=== PATIENT | female | born 1960 | race Caucasian/White ===

== ENCOUNTER → 2023-08-25 07:34 | Outpatient (REF) | payer BC, SELFPAY | LOC: HWRAD 07:34 | PROVIDERS: ATTENDING PHYSICIAN Family Medicine | DX: I49.9 Cardiac arrhythmia, unspecified (principal); R53.83 Other fatigue; R11.0 Nausea; M54.9 Dorsalgia, unspecified | CPT/HCPCS: 76700 ==

== ENCOUNTER → 2024-10-05 09:26 | Outpatient (REF) | payer BC, SELFPAY | LOC: HWCARD 09:26 | PROVIDERS: ATTENDING PHYSICIAN Orthopaedic Surgery; FAMILY PHYSICIAN Family Medicine | DX: Z01.818 Encounter for other preprocedural examination (principal) | CPT/HCPCS: 93005 ==

== ENCOUNTER 2025-03-25 09:00 | Emergency (ER) | payer BC, SELFPAY ==
[2025-03-25 09:03] VITALS: BP 149/84
--- NOTE | 2025-03-25 09:40 | ED.GENMED ---
History of Present Illness
General
Chief Complaint: Headache
Time Seen by Provider: 03/25/25 09:30
History of Present Illness
History of Present Illness:
65-year-old female presents to the emergency department for evaluation of intermittent sharp pains to the right occiput and right temporal skull for 5 days. No obvious provoking or palliating factors but patient does note that whenever she leans
forward the pain worsens. She does note some neck discomfort for the past several months as well. No vision changes, diplopia, nausea, vomiting, fever, chills, or sweats. Saw her primary care physician on Wednesday and was given an order for a CT
scan of the brain which has not yet been scheduled.
Past History
Past History
ED Past Medical History: None
ED Past Surgical History: None
Social History
Tobacco: Non-smoker
Living: with family
Employment: Employed
Review of Systems
Review of Systems
Allergies reviewed?: Yes
All Other Systems: ROS reviewed and negative except as documented in HPI and ROS
Phy Exam
Physical Exam
Physical Exam:
GEN: Well appearing, NAD, WDWN
HEENT: Oral mucosa moist, no scleral icterus, no nasal congestion, pupils equal and round and reactive to light, normal EOM
Cardiac: Regular rate
Lung: No respiratory distress, no tachypnea
MSK: No gross deformity or injuries
Skin: Good color, no pallor or jaundice, no rashes
Neuro: AO x3; CN II-XII grossly intact. BUE strength 5/5 in all zur[place], sensation intact and symmetric. BLE strength 5/5 in all zurita, sensation intact and symmetric
Psych: Calm, cooperative
Course
Orders/Labs/Results
Orders:
Orders
03/25/25 09:40
CT Head W/o Iv Contrast Urgent
Comment:
Reason For Exam: headache
03/25/25 10:11
Gabapentin [Neurontin] 300 mg PO NOW STA
Vital Signs
Initial and Last Documented VS:
Initial Vital Signs
Temp Pulse Resp BP Pulse Ox
98.3 F 81 18 149/84 98
03/25/25 09:03 03/25/25 09:03 03/25/25 09:03 03/25/25 09:03 03/25/25 09:03
Last Documented Vital Signs
Temp Pulse Resp BP Pulse Ox
98.3 F 76 18 144/79 100
03/25/25 09:03 03/25/25 10:35 03/25/25 10:35 03/25/25 10:35 03/25/25 10:35
MDM/Problems Addressed
MDM/Problems Addressed:
Pt is neurologically intact without focal deficit. No visual symptoms concerning for GCA, CTH reassuring against ICH or mass. No fever or meningeal signs. Pain pattern most consistent with neuralgic pain, likely cervicogenic. Will trial addition of
gabapentin to NSAID therapy (given by PCP), and recommend outpatient PT/chiropractic treatment
*Pulse Oximetry
SaO2: 98
Oxygen Mode of Delivery: Room air
Patient hypoxic: no
*Critical Care Note
Total Time (30-74mins, 75-104mins- exclusive of procedures): Not Applicable
ED Attending Note
-
Portions of this chart may have been created with voice recognition software.� Occasional wrong word or��sound alike� substitutions may have occurred due to the inherent limitations of voice recognition software.
Discharge Plan
Departure
Patient Disposition: Home (Routine Discharge)
Date of Disposition: 03/25/25
Time of Disposition: 10:32
Patient with high blood pressure during this ER visit?: No
Discharge Problem:
Headache, cervicogenic
Instructions: Headache, Adult (DC)
Prescriptions:
New
gabapentin 300 mg capsule
300 mg PO BID-TID Qty: 30 0RF
No Action
escitalopram oxalate [Lexapro] 5 MG tablet
5 mg PO DAILY
sulfamethoxazole-trimethoprim 1 TABLET tablet
1 tab PO BID Qty: 20 0RF
Referrals:
Cody Blum MD [Family Provider, Family Practice]
Activity Restrictions/Additional Instructions:
Consider physical therapy or chiropractic treatments to improve your neck pain
Interventions
Interventions:
*Risk Screen - Suicide Last Done: 03/25/25 09:03
*General Assessment Last Done: 03/25/25 09:03
*Neglect/Abuse Screening Last Done: 03/25/25 09:03
*ED COVID-19 Vaccine History Last Done: 03/25/25 09:46
*ED Influenza Vaccine History Last Done: 03/25/25 09:46
*Nursing Disposition Last Done: 03/25/25 10:35
ED- Neurological Assessment Last Done: 03/25/25 09:48
Discharge Date and Time
Discharge Date/Time: 03/25/25 10:38
Print Language: SINHALA
[2025-03-25] MEDS: NEURONTIN 300 MG PO (10:26)
[2025-03-25 10:35] VITALS: BP 144/79
== END 2025-03-25 10:38 | disposition home or self-care (01) ==
LOC: EMR 09:00
PROVIDERS: EMERGENCY PHYSICIAN Student in an Organized Health Care Education/Training Program; FAMILY PHYSICIAN Family Medicine
DX: G44.86 Cervicogenic headache (principal)
CPT/HCPCS: 99284; 70450